=== PATIENT | female | born 1985 | race African-American/Black ===

== ENCOUNTER 2017-01-28 04:40 | Day surgery (SDC) | payer BC ==
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
[~2017-01-28 04:40] MED LIST: DEPO SHOT IM/SC; NEUR100 PO; ULTRAM50 PO
== END 2017-01-28 11:19 | disposition home or self-care (01) ==
LOC: SDC 04:40
PROVIDERS: Orthopaedic Surgery Orthopaedic Surgery of the Spine
PROC: 01NB0ZZ Release Lumbar Nerve, Open Approach (ICD-10-PCS; 2017-01-28)
PROC: 0SB20ZZ Excision of Lumbar Vertebral Disc, Open Approach (ICD-10-PCS; principal; 2017-01-28 05:45)
DX: M51.16 Intervertebral disc disorders with radiculopathy, lumbar region (principal); E66.9 Obesity, unspecified; F17.210 Nicotine dependence, cigarettes, uncomplicated
CPT/HCPCS: 84703; 88304; 88311; A9270-GY; J0690; J1885; J2250; J2270; J2274; J2405; J2710; J3010